=== PATIENT | female | born 1945 | race Caucasian/White ===

== ENCOUNTER → 2017-08-25 | Outpatient (CLI) | payer OTHER ==
[~2017-08-25] MED LIST: BENADRYL25 MG PO; CLONAZEPAM 0.50.5 M1 PO; ELIQUIS5 MG PO; PRESERVISION L1 EACH PO; REMERON15 MG PO; UNICOMPLEX M TA1 TA1 PO; VITAMIN B-12500 MCG PO; ZYRTEC10 M5 PO
--- NOTE | ~2017-08-25 | EKG ---
[place] [address] [email or web address] [place] [address] ELECTROCARDIOGRAM REPORT Name: CHRISTEL WADE Room #: [facility]#: [id number] Admission: 08/25/17 Attend Phys: Daniela Arizmendi MD Discharge: Date of : 43 Report #: [id number] THIS REPORT FOR: //name// [facility] Test Date: 2017-08-25 Test Time: 06:50:42 Pat Name: CHRISTEL WADE Department: Room: Gender: F Entry Level Staff Accountant: EVELYN : 1945 Requested By: Daniela Arizmendi Order Number: [id number] MD: Terence Ayala Measurements Intervals [place] Rate: 83 P: 57 NE: 152 QRS: 6 QRSD: 102 T: 36 QT: 367 QTc: 432 Interpretive Statements Sinus rhythm RSR' in V1 or V2, probably normal variant Baseline wander in lead(s) V1 No previous ECG available for comparison Electronically Signed On 08-25-2017 7:50:07 CDT by Terence Ayala [email or web address] <ELECTRONICALLY SIGNED> By: Terence Ayala MD, [facility] 08/25/17 0750 Terence Ayala MD, [facility] /EPI
== END | disposition home or self-care (01) ==
LOC: LITH 05:54
DX: N20.0 Calculus of kidney (principal); Z88.0 Allergy status to penicillin